=== PATIENT | male | born 1955 | race American Indian/Alaskan Native ===

== ENCOUNTER 2017-03-13 10:31 | Day surgery (SDC) | payer OTHER ==
[2017-03-13] MEDS ORDERED: ANCEF/STERILE WATER 2 GM/20 ML 2 GM/20 ML SYRINGE IV NR (11:00)
[2017-03-13] MEDS ORDERED: HEPARIN/NS 5000 UNIT/500ML(CATH LAB) 500 ML IR ONE (14:24)
[2017-03-13] MEDS ORDERED: VERSED ONE (14:25)
[2017-03-13] MEDS ORDERED: XYLOCAINE 2% INFILTRATI ONE (14:25)
[2017-03-13] MEDS ORDERED: HEPARIN 10,000 UNITS/10 ML ONE (14:25)
[2017-03-13] MEDS ORDERED: SUBLIMAZE ONE (14:26)
[2017-03-13] MEDS ORDERED: NACL 0.9% 500 ML 500 ML ONE (14:26)
[2017-03-13] MEDS ORDERED: ANCEF/STERILE WATER 2 GM/20 ML IV ONE (14:48)
[2017-03-13] MEDS ORDERED: ANCEF/STERILE WATER 2 GM/20 ML 2 GM/20 ML SYRINGE IV ONE (14:49)
--- NOTE | 2017-03-13 15:38 | Operative Report ---
Operative Report Operative Report: Operative note: Date: 03/13/2017 Preoperative diagnosis: Poor clearance during dialysis, malfunction of right arm AV fistula Postoperative diagnosis: Same. Operation: Right arm fistulogram Surgeon: Armida Richey. Asst.: None Anesthesia: moderate sedation EBL: Minimal Findings: Stenosis of right subclavian vein, right innominate vein Indications: 59-year-old gentleman with low functional right arm AV fistula significant for poor clearance during dialysis and not able to dialyze attempted today sent for possible AV fistula declot, however had throat palpable when came in. Patient was discussed risks and benefits of procedure and chose to proceed, signed informed consent. Operative details: Patient was brought to the [facility] [employer] [facility] and placed in supine position with right arm on arm boards. Patient was prepped and draped in a sterile fashion. Time out was performed. AVF was first inspected under US. There was no obvious defects identified. Fistula was accessed with micropuncture needle after injection of lidocaine at the projected site. Micropuncture wire was inserted. Needle was exchanged to micropuncture sheath. Fistulogram was performed and no obvious stenosis identified, however there were signs of central stenosis at the subclavian and right innominate veins while contrast was backed up into branches. Wire was advanced into SVC. The puncture sheath was exchanged to a 7 Norwegian access sheath. Patient was heparinized with 2000 units of heparin. 12 x 40 Everflex balloon was positioned at the right subclavian and inflated until the waist was straightened, it was held for 1 minute. Same steps were repeated for right innominate vein. Then the balloon was removed and fistula performed with good flow. Arterial anastomosis was checked using compression of the fistula and retroflexed into the artery. All devices were removed. access was closed using 4-0 chromic stitch. At the end of procedure there was thrill palpated throughout the fistula, cephalic vein.
--- NOTE | 2017-03-13 15:42 | Short Stay Summary ---
Short Stay Documentation Date of service: 03/13/17 - History Past Medical History: diabetes, ESRD, hypertension Past Surgical History: Other (right arm AVF) Social history: no significant social history - Allergies and Medications Current Medications: Allergies latex Allergy (Unverified 03/13/17 10:32) Itching Home Medications Medication Instructions Recorded Confirmed Last Taken Type Amitriptyline [Elavil] 25 mg PO DAILY 03/13/17 03/13/17 1 Week Ago History ~03/06/17 Aspirin EC [Ecotrin] 325 mg PO QDAY 03/13/17 03/13/17 1 Week Ago History ~03/06/17 Carvedilol [Carvedilol] 6.25 mg PO DAILY 03/13/17 03/13/17 1 Week Ago History ~03/06/17 NIFEdipine XL [Procardia Xl] 90 mg PO DAILY 03/13/17 03/13/17 1 Week Ago History ~03/06/17 Olmesartan/Amlodipin/Hcthiazid 1 tab PO DAILY 03/13/17 03/13/17 1 Week Ago History [[id number] 40-10-25Mg] ~03/06/17 Rosuvastatin Calcium [Rosuvastatin 20 mg PO DAILY 03/13/17 03/13/17 1 Week Ago History Calcium] ~03/06/17 Sevelamer Carbonate [Renvela] 3 tab PO TIDWM 03/13/17 03/13/17 03/12/17 History Sitagliptin Phosphate [Januvia] 50 mg PO QAM 03/13/17 03/13/17 1 Week Ago History ~03/06/17 glyBURIDE [Glyburide] 5 mg PO QAM 03/13/17 03/13/17 1 Week Ago History ~03/06/17 Active Medications Cefazolin Sodium (Ancef/Sterile Water 2 Gm/20 Ml) 2 gm in 20 mls @ 80 mls/hr IV PREOP NR PRN Reason: Protocol Stop: 03/15/17 23:59 - Brief post op/procedure progress note Date of procedure: 03/13/17 Pre-op diagnosis: malfunction of AVF Post-op diagnosis: same Procedure: right arm fistulogram, balloon angioplasty of right subclavian and innominate veins Anesthesia: MAC Findings: stenosis of the right subclavian and innominate veins Surgeon: LEANNA CRUZ Estimated blood loss: minimal Condition: stable - Disposition Condition at discharge: Good Disposition: DC-01 TO HOME OR SELFCARE Short Stay Discharge Plan Activity: no restrictions Diet: renal Follow up with: RAJWINDER SAPP MD [Primary Care Provider] - 7 Days
[2017-03-13 16:11] VITALS: BP 187/88
== END 2017-03-13 16:45 | disposition left against medical advice (07) ==
LOC: CATHLABREC 10:31
PROVIDERS: ATTEND Surgery Vascular Surgery
DX: T82.898A Other specified complication of vascular prosthetic devices, implants and grafts, initial encounter (principal); I12.0 Hypertensive chronic kidney disease with stage 5 chronic kidney disease or end stage renal disease; E11.22 Type 2 diabetes mellitus with diabetic chronic kidney disease; N18.6 End stage renal disease; Z79.82 Long term (current) use of aspirin; Z91.040 Latex allergy status; Y83.2 Surgical operation with anastomosis, bypass or graft as the cause of abnormal reaction of the patient, or of later complication, without mention of misadventure at the time of the procedure
CPT/HCPCS: 36415; 36902; 82962; 84132; 99156; 99157; C1725; C1769; C1894; J0690; J1644; J2250; J3010; J7040; Q9967